=== PATIENT | male | born 1980 | race Hispanic/Latino ===

== ENCOUNTER 2022-07-09 01:21 | Emergency (ER) | payer SELFPAY ==
--- OUTSIDE RECORDS SUMMARY | 2022-07-09 01:24 | XMS REPORT | Clinical Summary ---
:1980 Author Organization [facility] Address [address] [place] [address] Care Team Providers Name Role Phone TramgavinoVeronica MD Unavailable Davonte Teixeira MD Primary Care Provider Annalee Umaña PA-C Unavailable Arun Whittaker MD Unavailable Allergies Active Allergy Reactions Severity Noted Date Comments Morphine Rash Low 06/14/2017 Penicillins Rash Low 12/08/2015 Childhood aller gy Medications No known medications Active Problems Problem Noted Date Gastro-esophageal reflux disease without esophagitis 0 06/23/2017 Overview: Added automatically from request for aide desire [id number] 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, cN0, cM0) - Signed by Davonte Teixeira MD on 06/22/2017 Lesion of vocal cord 05/25/2017 Overview: Added automatically from request for aide desire [id number] Primary squamous cell carcinoma of larynx 05/25/2017 Overview: Added automatically from request for aide desire [id number] Acid reflux 05/25/2017 Overview: Added automatically from request for aide desire [id number] 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 Surgical History Surgery Date Site/Laterality Comments APPENDECTOMY 02/15/2016 - 02/13/2017 PARTIAL LARYNGECTOMY x3 MD LARYNGOSCOPY W/WO 06/14/2017 Mouth/Bilateral Procedure: EUA, DL, Biopsy; TRACHEOSCOPY DX EXCEPT Surgeon: BUD Vasquez MD; Location: [facility]; Service: [facility] - HE AD & NECK SURGERY MD LARYNGOSCOPY W/BIOPSY 06/14/2017 Mouth/Left Procedu re: DIRECT OPERATIVE MICROSCOPE/TELESCOPE LARYNGOSCOP Y WITH BIOPSY USING OPERATING MICROSCOPE; Surgeon: Arun Whittaker MD; Location[facility]; Service: [facility] - HE AD & NECK SURGERY MD EGD TRANSORAL BIOPSY 07/12/2017 Esophagus/N/A Procedur e: UPPER SINGLE/MULTIPLE GASTROINTESTINAL ENDOSCOPY OF ESOPHAGUS, ST OMACH, AND DUODENUM WITH BI OPSY; Surgeon: Cathy merlos MD; Location: [facility] END[facility]; Servi ce: GASTROENTEROLOGY Medical History Medical History Date Comments Cancer Gastro-esophageal reflux disease without esophagitis 06/24/19 18 Cancer of supraglottis Squamous cell ca Family History Medical History Relation Name Comments Cancer Mother Relation Name Status Comments Mother Breast cancer Social History Tobacco Use Types Packs/Day Years Used Date Smoking Tobacco: Never Smokeless Tobacco: Never Alcohol Use Standard Drinks/Week Comments Yes 3 (1 standard drink = 0.6 oz pure alcoho l) ocassionally Sex Assigned at Date Recorded Not on file Obstetrics History Last Filed Vital Signs Not on file Plan of Treatment Health Maintenance Due Date Last Done Comments COVID-19 Vaccination (#1) 04/03/1982 Results Not on fileafter 07/09/2021 Advance Directives Code Status Date Activated Date Inactivated Comments Full Code 06/14/2017 11:22 AM 06/14/2017 7:18 PM Care Teams Field Support Representative Relationship Specialty Start Date End Date Veronica Francis MD PCP - External Otolaryngology 10/29/15 Referring Davonte Teixeira MD PCP - General Radiation Oncology 10/29/[address] [place] [id number] Annalee Umaña PA-C Physician Auto Leasing Manager Radiation Oncology 07/27/[address] [place] [address] Arun Whittaker MD Consulting Physician Head and Neck Surgery 10/06/16 [facility] [place] [address]
--- OUTSIDE RECORDS SUMMARY | 2022-07-09 01:24 | XMS REPORT | Continuity of Care Document ---
:[address] [facility] t Address [address] [place] [id number] Care Team Providers Name Role Phone Davonte Teixeira MD Primary Care Physician DAYNA HOLLIDAY Attending Clinician Unavailable Problems Condition Condition Condition Status Onset Resolution Last Treating Co mments Source Name Details Category Date Date Treatment Clinician Date Gastro-eso Gastro-eso Disease Active Overview : Univers phageal phageal 5-10 Formattin ity o f reflux reflux 00:00: g of this [place] disease disease 00 note MD without without might be Misha o esophagiti esophagiti different n s s from the Cancer original. Center Added automatic ally from request for surgery [id number] Malignant Malignant Disease Active Uni vers neoplasm neoplasm 06-22 ity of of of 00:00: [place] supraglott supraglott 00 MD is is [facility] Lesion of Lesion of Disease Active Overview: Univers vocal cord vocal cord 4-11 Formattin ity of 00:00: g of this [place] 00 note MD might be Anderso different n from the Cancer original. Center Added automatic ally from request for surgery [id number] Primary Primary Disease Active Overview: Univ ers squamous squamous 4-11 Formattin ity of cell cell 00:00: g of this [place] carcinoma carcinoma 00 note MD of larynx of larynx might be An derso different n from the Cancer original. Center Added automatic ally from request for surgery [id number] Acid Acid Disease Active 2018-0 Overview: Univer s reflux reflux 4-11 Formattin ity of 00:00: g of this [place] 00 note MD might be Ann silverio n from the Cancer original. Center Added automatic ally from request for surgery [id number] Primary Primary Disease Active 2015-02 Univers malignant malignant 0-14 ity of neoplasm neoplasm 00:00: [place] of glottis of glottis 00 MD [facility] Allergies, Adverse Reactions, Alerts Allergy Allergy Status Severity Reaction(s) Onset Inactive Treating Comm ents Source Name Type Date Date Clinician Morphine Propensi Active Rash Univer s ty to 5-01 ity of adverse 00:00: [place] reaction 00 MD [facility] Penicill Propensi Active 2015-02 Childhood Met hodi ins ty to 0-[address] adverse 00:00: Hospita reaction 00 l s to drug Penicill Propensi Active Rash 2015-02 Childhood Uni vers ins ty to 0-24 allergy ity of adverse 00:00: [place] reaction 00 MD [facility] Family History Family Member Diagnosis Comments Start Date Stop Date Source Natural mother Cancer [facility] MD Eros Rodriguez [facility] Social History Social Habit Start Date Stop Date Quantity Comments Source Gender identity [facility] History of Social 2021-06-05 2021-06-[address] function 00:00:00 00:00:00 Hospital Tobacco use and 2019-03-20 2019-03-20 Smokeless tobacco [facility] exposure 00:00:00 00:00:00 non-user Hospital Alcohol intake 2017-07-15 2017-07-15 Current drinker of Un iversity of 00:00:00 00:00:00 alcohol (finding) Lisa Rodriguez [facility] Alcohol Comment 2017-05-25 2017-05-25 ocassionally Univers ity of 00:00:00 00:00:00 Lisa wylie [place] Sex Ass[birth year] At [birth year] [facility] 00:00:00 00:00:00 [place] Eros wylie [place] Smoking Status Start Date Stop Date Source Never smoked tobacco [facility] Medications Ordered Filled Start Stop Current Ordering Indication Dosage Frequency Signature Comments Components Source Medication Medication Date Date Medication? Clinician (SIG) Name Name esomeprazol Yes 20mg QD Take 20 mg [facility] (NexIUM) 4-[address] 20 MG 07:54: daily Hospita capsule 20 before l breakfast. Procedures This patient has no known procedures. Plan of Care Planned Activity Planned Date Details Comments Source Future Scheduled 2022-05-22 Hepatitis C screening [facility] Test 02:21:34 (procedure) [code = 694506132] Future Scheduled 2022-05-22 COVID-19 VACCINE (3 - [facility] [place] [facility] Test 02:21:34 Booster for Pfizer series) [code = COVID-19 VACCINE (3 - Booster for Pfizer series)] Future Scheduled 2022-05-22 INFLUENZA VACCINE [facility] Test 02:21:34 [code = INFLUENZA VACCINE] Future Scheduled 2021-08-19 COVID-19 Vaccination Uni [facility] Test 04:42:12 (#1) [code = COVID-19 [facility] (#1)] Center Encounters Start End Encounter Admission Attending Care Care Encounter Source Date/Time Date/Time Type Type Clinicians Facility Department ID 2021-06-05 2021-06-05 Outpatient [facility] [id number] [id number] [place] 00:00:00 00:00:00 DAYNA [address] 2021-04-23 2021-04-23 Outpatient [facility] [id number] [place] 00:00:00 00:00:00 DAYNA [address] Results This patient has no known results.
[2022-07-09] MEDS ORDERED: levoFLOXacin 750 MG TAB ONE (01:55)
[2022-07-09] MEDS ORDERED: ONDANSETRON 4 MG/2 ML VIAL ONE (01:56)
[2022-07-09] MEDS ORDERED: KETOROLAC 30 MG/ML INJ ONE (01:56)
[2022-07-09] MEDS ORDERED: LIDOCAINE 1% 20 ML MDV ONE (01:56)
[2022-07-09] MEDS ORDERED: TETANUS & DIPHTHERIA TOX,ADULT 0.5 ML VIAL ONE (01:56)
[2022-07-09] MEDS ORDERED: MORPHINE 4 MG/ML SYR ONE ×2 (01:56→03:25)
[2022-07-09] MEDS ORDERED: metroNIDAZOLE 500 MG TABLET ONE (01:58)
[2022-07-09] MEDS ORDERED: PROMETHAZINE 25 MG TABLET ONE (03:25)
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
[2022-07-09] MEDS ORDERED: HYDROCODONE/APAP 10/325 TAB ONE (07:15)
[2022-07-09] MEDS ORDERED: IBUPROFEN 400 MG TAB ONE (07:15)
[2022-07-09 08:00] VITALS: TEMP 98.4
[2022-07-09 08:06] VITALS: BP 132/86; O2SAT 98
--- NOTE | 2022-07-09 14:01 | RAD REPORT ---
EXAM DESCRIPTION: CT - Facial Bones W/ Mpr - 07/09/2022 7:01 am CLINICAL HISTORY: Facial nasal trauma TECHNIQUE: Contiguous axial images obtained through the face and paranasal sinuses without IV contra st. Coronal and sagittal reformatted images were provided. This exam was performed according to our departmental dose-optimization program, which includes autom ated exposure control, adjustment of the mA and/or kV according to patient size and/or use of iterati ve reconstruction technique. COMPARISON: None available for comparison FINDINGS: Bones: No acute maxillary or mandibular fracture Small fracture of the tip of the nasal bone. Temporomandibular joints: No dislocation. Paranasal sinuses and mastoid air cells: Minimal paranasal sinus mucosal thickening, likely chronic. Orbits: Globes appear intact. No intraconal or extraconal abnormality. Optic nerves appear unremark able. Soft tissues: Soft tissue swelling overlying the mandible and maxilla anteriorly which may represent soft tissue contusion. Soft tissue swelling overlying the nose. IMPRESSION: 1. Small fracture of the tip of the nasal bone. Soft tissue swelling overlying the nos e. 2. Soft tissue swelling overlying the mandible and maxilla anteriorly which may represent soft tiss ue contusion. Electronically signed by: Freeman Riggins MD 07/09/2022 6:52 AM CDT Due to temporary technical issues with the PACS/Fluency reporting system, reports are being signed by the in house radiologist without review as a courtesy to ensure prompt reporting. The interpreting r adiologist is fully responsible for the content of the report.
== END 2022-07-09 07:50 | disposition home or self-care (01) ==
LOC: ER 01:21
PROC: 0HQ1XZZ Repair Face Skin, External Approach (ICD-10-PCS; principal; 2022-07-09)
DX: S01.21XA Laceration without foreign body of nose, initial encounter (principal); S01.511A Laceration without foreign body of lip, initial encounter; S02.2XXA Fracture of nasal bones, initial encounter for closed fracture; Y04.1XXA Assault by human bite, initial encounter; Z23 Encounter for immunization
CPT/HCPCS: 70486; 76377; 90471; 90714; 96374; 96375; 99284; J2001; J2405; Q0169